=== PATIENT | male | born 1940 | race Caucasian/White ===

== ENCOUNTER 2020-08-22 11:34 | Outpatient (CLI) | payer MEDICARE | END 2020-08-22 11:35 | disposition home or self-care (01) | LOC: MRI 11:34 | PROVIDERS: ATTEND Family Medicine | DX: G89.4 Chronic pain syndrome (principal); M48.061 Spinal stenosis, lumbar region without neurogenic claudication; M47.816 Spondylosis without myelopathy or radiculopathy, lumbar region; N28.9 Disorder of kidney and ureter, unspecified | CPT/HCPCS: 72148 ==

== ENCOUNTER 2021-04-11 14:50 | Outpatient (CLI) | payer MEDICARE | END 2021-04-11 14:51 | disposition home or self-care (01) | LOC: BICCT 14:50 | PROVIDERS: ATTEND Internal Medicine Nephrology | DX: N28.1 Cyst of kidney, acquired (principal); K57.30 Diverticulosis of large intestine without perforation or abscess without bleeding; K57.10 Diverticulosis of small intestine without perforation or abscess without bleeding; R91.8 Other nonspecific abnormal finding of lung field; K82.8 Other specified diseases of gallbladder; N28.89 Other specified disorders of kidney and ureter | CPT/HCPCS: 74176 ==

== ENCOUNTER 2021-07-11 14:22 | Inpatient (IN) | payer MEDICARE ==
[2021-07-11 15:21] LABS: #Lymphocytes 1.5 thou/uL (1.20-3.40); #Monocytes 0.6 thou/uL (0.11-0.59); #Neutrophils 7.7 thou/uL (1.40-6.50); %Basophils 0.1 % (0.0-1.0); %Eosinophils 0.4 % (0.0-10.0); %Lymphocytes 15.3 % (21.0-51.0); %Monocytes 6.5 % (0.0-10.0); %Neutrophils 77.8 % (42.0-75.0); Hemoglobin 11.1 g/dL (14.0-18.0); Mean Corpuscular HGB CONC 32.5 g/dL (32.0-36.0); Mean Corpuscular Volume 98.3 fL (78.0-98.0); Mean Platelet Volume 7.9 fL (7.4-10.4); Platelet Count 303 thou/uL (130-400); RBC Distribution Width 13.8 % (11.5-14.5); Red Blood Cell (RBC) Count 3.48 mill/uL (4.70-6.10); White Blood Cell (WBC) Count 9.8 thou/uL (4.8-10.8)
[2021-07-11 15:43] LABS: ALT (SGPT) 11 U/L (8-55); AST (SGOT) 12 U/L (5-34); Albumin 4.1 g/dL (3.4-4.8); Alkaline Phosphatase 41 U/L (40-110); Anion Gap 16 mmol/L (10-20); BUN (Urea Nitrogen) 49 mg/dL (8.4-25.7); Bilirubin, Total 0.5 mg/dL (0.2-1.2); Calc. Creatinine Clearance 0 mL/min (70-130); Calcium 9.3 mg/dL (7.8-10.44); Carbon Dioxide 21 mmol/L (23-31); Chloride 105 mmol/L (98-107); Globulin 2.9 g/dL (2.4-3.5); Glucose 121 mg/dL (83-110); Sodium 138 mmol/L (136-145)
[2021-07-11 16:58] LABS: Lipase 9 U/L (8-78); Magnesium 2.3 mg/dL (1.6-2.6)
[2021-07-11] MEDS ORDERED: methylPREDNISolone Sod Succ/PF 125 MG/2 ML VIAL ONE (17:37)
[2021-07-11 18:41] LABS: Bacteria/HPF None Seen HPF (None Seen); Bilirubin Negative (Negative); Blood, Urine Negative (Negative); Clarity Clear (Clear); Glucose, Urine (Dipstick) Normal (Negative); Ketone, Urine Negative (Negative); Leukocyte Negative Leu/uL (Negative); Nitrite Negative (Negative); Protein, Urine (Dipstick) 100 mg/dL (Neg-Trace); RBC/HPF None Seen HPF (0-3); Specific Gravity, Urine 1.014 (1.002-1.036); Squamous Epithelial None Seen HPF (0-3); Urobilinogen Normal mg/dL (Less than 2); WBC/HPF 0-3 HPF (0-3); pH, Urine 5.5 (5.0-9.0)
[2021-07-11] MEDS ORDERED: Sodium Chloride 0.9% 1,000 ML IV SCH (20:15)
[2021-07-11 20:56] VITALS: BMI 20.7
[2021-07-11] MEDS ORDERED: Acetaminophen 325 MG TAB PO PRN (21:34)
[2021-07-11] MEDS ORDERED: Ondansetron PF 4 MG/2 ML Vial IVP PRN (21:34)
[2021-07-11] MEDS ORDERED: Furosemide 20 MG/2 ML VIAL SLOW IVP SCH (21:45)
[2021-07-12] MEDS: Furosemide 20 MG/2 ML VIAL SLOW IVP SCH ×2 (04:55→14:39)
[2021-07-12] MEDS: methylPREDNISolone Sod Succ/PF 125 MG/2 ML VIAL IVP SCH ×4 (04:55→17:24)
[2021-07-12 05:58] LABS: #Lymphocytes 0.4 thou/uL (1.20-3.40); #Monocytes 0.1 thou/uL (0.11-0.59); #Neutrophils 5.5 thou/uL (1.40-6.50); %Basophils 0.3 % (0.0-1.0); %Lymphocytes 6.6 % (21.0-51.0); %Monocytes 0.8 % (0.0-10.0); %Neutrophils 92.2 % (42.0-75.0); Hemoglobin 10.8 g/dL (14.0-18.0); Mean Corpuscular HGB CONC 33.2 g/dL (32.0-36.0); Mean Corpuscular Hemoglobin 32.9 pg (27.0-31.0); Mean Corpuscular Volume 98.9 fL (78.0-98.0); Mean Platelet Volume 7.9 fL (7.4-10.4); Platelet Count 266 thou/uL (130-400); RBC Distribution Width 13.6 % (11.5-14.5)
[2021-07-12 06:25] LABS: Anion Gap 14 mmol/L (10-20); BUN (Urea Nitrogen) 50 mg/dL (8.4-25.7); Calc. Creatinine Clearance 20 mL/min (70-130); Carbon Dioxide 23 mmol/L (23-31); Chloride 107 mmol/L (98-107); Glucose 141 mg/dL (83-110); Potassium 4.2 mmol/L (3.5-5.1); Sodium 140 mmol/L (136-145)
[2021-07-12] MEDS: Heparin 5,000 UNITS/ML VIAL SC SCH ×3 (08:09→20:25)
[2021-07-12 11:59] LABS: SARS-CoV-2 PCR by NAA Not Detected (NotDetected)
[2021-07-12] MEDS ORDERED: Non-Formulary Item 1 EACH (Albuterol Sulfate Hfa (Or) 200 PUFF Inh) INH PRN (12:07)
[2021-07-12] MEDS ORDERED: Non-Formulary Item 1 EACH (Ferrous Sulfate [Iron] 325 MG Tablet) PO SCH (12:15)
[2021-07-12] MEDS ORDERED: Albuterol 200 PUFF (6.7GM INHALER) INH PRN (12:16)
[2021-07-12] MEDS: hydrALAZINE 25 MG TAB PO SCH ×3 (14:39→20:34)
[2021-07-12] MEDS: Carvedilol 6.25 MG TAB PO SCH (17:24)
[2021-07-12] MEDS: Mometasone 200 MCG/Formoterol 5 MCG 120 PUFF INHALER INH SCH (18:49)
[2021-07-13] MEDS: methylPREDNISolone Sod Succ/PF 125 MG/2 ML VIAL IVP SCH ×4 (01:12→17:25)
[2021-07-13] MEDS: Furosemide 20 MG/2 ML VIAL SLOW IVP SCH ×2 (05:04→14:25)
[2021-07-13 06:43] LABS: Hemoglobin 10.8 g/dL (14.0-18.0); Mean Corpuscular HGB CONC 32.9 g/dL (32.0-36.0); Mean Corpuscular Hemoglobin 32.5 pg (27.0-31.0); Mean Corpuscular Volume 98.9 fL (78.0-98.0); Mean Platelet Volume 8.1 fL (7.4-10.4); Platelet Count 308 thou/uL (130-400); RBC Distribution Width 13.5 % (11.5-14.5); Red Blood Cell (RBC) Count 3.32 mill/uL (4.70-6.10); White Blood Cell (WBC) Count 15.8 thou/uL (4.8-10.8)
[2021-07-13 06:58] LABS: Anion Gap 17 mmol/L (10-20); BUN (Urea Nitrogen) 56 mg/dL (8.4-25.7); Calc. Creatinine Clearance 19 mL/min (70-130); Calcium 8.9 mg/dL (7.8-10.44); Carbon Dioxide 22 mmol/L (23-31); Chloride 105 mmol/L (98-107); Glucose 161 mg/dL (83-110); Potassium 3.5 mmol/L (3.5-5.1); Sodium 140 mmol/L (136-145)
[2021-07-13] MEDS: Mometasone 200 MCG/Formoterol 5 MCG 120 PUFF INHALER INH SCH ×2 (07:09→19:26)
[2021-07-13 07:22] LABS: Band 17 % (5-11); Lymphocytes 5 % (21-51); MDiff Complete? YES; Neutrophil 78 % (42-75); Platelet Morphology Comment Appears Adequate; Polychromasia SLIGHT = 2-3 cells (100X) (0-2/hpf)
[2021-07-13] MEDS ORDERED: Carvedilol 25 MG TAB PO SCH (08:30)
[2021-07-13] MEDS: Aspirin 81 mg Enteric Coated Tablet PO SCH (08:39)
[2021-07-13] MEDS: Heparin 5,000 UNITS/ML VIAL SC SCH ×3 (08:39→20:46)
[2021-07-13] MEDS: hydrALAZINE 25 MG TAB PO SCH ×3 (08:39→20:46)
[2021-07-13] MEDS: NIFEdipine XL 30 MG TAB PO SCH (08:39)
[2021-07-13] MEDS: Tamsulosin HCl 0.4 MG CAP PO SCH (08:39)
[2021-07-13] MEDS ORDERED: Ferrous Sulfate 325 MG TAB PO SCH (09:00)
[2021-07-13] MEDS: Carvedilol 6.25 MG TAB PO SCH (09:02)
[2021-07-13] MEDS: Carvedilol 25 MG TAB PO SCH (17:25)
[2021-07-14] MEDS: methylPREDNISolone Sod Succ/PF 125 MG/2 ML VIAL IVP SCH ×3 (00:48→11:49)
[2021-07-14] MEDS: Furosemide 20 MG/2 ML VIAL SLOW IVP SCH (06:03)
[2021-07-14 06:43] LABS: #Lymphocytes 0.6 thou/uL (1.20-3.40); #Monocytes 0.2 thou/uL (0.11-0.59); #Neutrophils 11.3 thou/uL (1.40-6.50); %Eosinophils 0.1 % (0.0-10.0); %Lymphocytes 4.7 % (21.0-51.0); %Monocytes 1.8 % (0.0-10.0); %Neutrophils 93.4 % (42.0-75.0); Mean Corpuscular Hemoglobin 32.5 pg (27.0-31.0); Mean Corpuscular Volume 98.2 fL (78.0-98.0); Mean Platelet Volume 8.2 fL (7.4-10.4); Platelet Count 335 thou/uL (130-400); RBC Distribution Width 13.5 % (11.5-14.5); Red Blood Cell (RBC) Count 3.39 mill/uL (4.70-6.10); White Blood Cell (WBC) Count 12.1 thou/uL (4.8-10.8)
[2021-07-14 06:54] LABS: Anion Gap 13 mmol/L (10-20); BUN (Urea Nitrogen) 58 mg/dL (8.4-25.7); Calc. Creatinine Clearance 21 mL/min (70-130); Calcium 8.8 mg/dL (7.8-10.44); Carbon Dioxide 26 mmol/L (23-31); Chloride 107 mmol/L (98-107); Glucose 164 mg/dL (83-110); Potassium 3.4 mmol/L (3.5-5.1); Sodium 143 mmol/L (136-145)
[2021-07-14] MEDS: Mometasone 200 MCG/Formoterol 5 MCG 120 PUFF INHALER INH SCH (07:19)
[2021-07-14 08:24] VITALS: BP 156/74; TEMP 98.1
[2021-07-14] MEDS: Carvedilol 25 MG TAB PO SCH (08:47)
[2021-07-14] MEDS: Tamsulosin HCl 0.4 MG CAP PO SCH (08:47)
[2021-07-14] MEDS: Aspirin 81 mg Enteric Coated Tablet PO SCH (08:47)
[2021-07-14] MEDS: NIFEdipine XL 30 MG TAB PO SCH (08:47)
[2021-07-14] MEDS: hydrALAZINE 25 MG TAB PO SCH (08:47)
[2021-07-14] MEDS: Heparin 5,000 UNITS/ML VIAL SC SCH (08:48)
[2021-07-14] MEDS ORDERED: Potassium Chloride 20 MEQ TAB PO SCH (09:00)
== END 2021-07-14 12:42 | disposition home or self-care (01) | DRG 291 ==
LOC: ERS 14:22 → T4-A 17:05
PROVIDERS: ADMIT Internal Medicine; ATTEND Internal Medicine
DX: I13.0 Hypertensive heart and chronic kidney disease with heart failure and stage 1 through stage 4 chronic kidney disease, or unspecified chronic kidney disease (principal); J18.9 Pneumonia, unspecified organism; I50.33 Acute on chronic diastolic (congestive) heart failure; J96.01 Acute respiratory failure with hypoxia; J44.1 Chronic obstructive pulmonary disease with (acute) exacerbation; N17.9 Acute kidney failure, unspecified; J44.0 Chronic obstructive pulmonary disease with (acute) lower respiratory infection; Z20.822 Contact with and (suspected) exposure to COVID-19; N40.0 Benign prostatic hyperplasia without lower urinary tract symptoms; D63.1 Anemia in chronic kidney disease; N18.30 Chronic kidney disease, stage 3 unspecified; R78.5 Finding of other psychotropic drug in blood; Z60.2 Problems related to living alone; D72.829 Elevated white blood cell count, unspecified; T38.0X5A Adverse effect of glucocorticoids and synthetic analogues, initial encounter; Z88.0 Allergy status to penicillin; Z98.890 Other specified postprocedural states; Z87.891 Personal history of nicotine dependence; Z79.899 Other long term (current) drug therapy; Z79.82 Long term (current) use of aspirin; Z79.51 Long term (current) use of inhaled steroids; Z80.9 Family history of malignant neoplasm, unspecified; Z28.310 Unvaccinated for COVID-19
CPT/HCPCS: 36415; 36416; 71045; 80048; 80053; 81003; 81015; 83605; 83690; 83735; 83880; 84145; 84484; 85025; 87040; 87086; 93005; 93306; 94640; 94664; 96374; 96375; J1644; J1940; J1956; J2930; J7620; U0003; U0005

== ENCOUNTER 2021-07-16 00:12 | Inpatient (IN) | payer MEDICARE ==
[2021-07-16 00:47] LABS: Mean Corpuscular HGB CONC 33.3 g/dL (32.0-36.0); Mean Corpuscular Hemoglobin 32.4 pg (27.0-31.0); Mean Corpuscular Volume 97.4 fL (78.0-98.0); Mean Platelet Volume 7.8 fL (7.4-10.4); Platelet Count 389 thou/uL (130-400); RBC Distribution Width 13.8 % (11.5-14.5); White Blood Cell (WBC) Count 12.6 thou/uL (4.8-10.8)
[2021-07-16 01:03] LABS: Band 2 % (5-11); Lymphocytes 9 % (21-51); MDiff Complete? YES; Metamyelocyte 1 % (0-0); Monocytes 10 % (0-10); Myelocyte 1 % (0-0); Neutrophil 77 % (42-75)
[2021-07-16 01:09] LABS: ALT (SGPT) 18 U/L (8-55); AST (SGOT) 17 U/L (5-34); Albumin 4.5 g/dL (3.4-4.8); Alkaline Phosphatase 48 U/L (40-110); Anion Gap 17 mmol/L (10-20); BUN (Urea Nitrogen) 67 mg/dL (8.4-25.7); Bilirubin, Total 0.4 mg/dL (0.2-1.2); Calc. Creatinine Clearance 0 mL/min (70-130); Calcium 9.8 mg/dL (7.8-10.44); Carbon Dioxide 25 mmol/L (23-31); Chloride 102 mmol/L (98-107); Globulin 2.5 g/dL (2.4-3.5); Glucose 141 mg/dL (83-110); Potassium 4.7 mmol/L (3.5-5.1); Sodium 139 mmol/L (136-145)
[2021-07-16] MEDS ORDERED: Acetaminophen 325 MG TAB PO PRN (04:14)
[2021-07-16 04:18] LABS: Troponin I 0.013 ng/mL (< 0.028)
[2021-07-16 06:57] LABS: SARS-CoV-2 NAA Rapid Test Not Detected (NotDetected)
[2021-07-16 08:14] VITALS: BMI 22.1
[2021-07-16] MEDS: Tamsulosin HCl 0.4 MG CAP PO SCH (09:53)
[2021-07-16] MEDS: methylPREDNISolone Sod Succ 40 MG VIAL IVP SCH ×3 (09:53→18:22)
[2021-07-16] MEDS: Aspirin 81 mg Enteric Coated Tablet PO SCH (09:53)
[2021-07-16] MEDS: NIFEdipine XL 30 MG TAB PO SCH (09:53)
[2021-07-16] MEDS: Heparin 5,000 UNITS/ML VIAL SC SCH ×3 (09:53→21:20)
[2021-07-16] MEDS: Furosemide 40 MG/4 ML VIAL SLOW IVP SCH ×2 (09:53→15:18)
[2021-07-16] MEDS: hydrALAZINE 25 MG TAB PO SCH ×3 (09:54→21:20)
[2021-07-17] MEDS: methylPREDNISolone Sod Succ 40 MG VIAL IVP SCH ×4 (00:16→17:41)
[2021-07-17 04:18] LABS: Anion Gap 14 mmol/L (10-20); BUN (Urea Nitrogen) 64 mg/dL (8.4-25.7); Calc. Creatinine Clearance 20 mL/min (70-130); Calcium 8.8 mg/dL (7.8-10.44); Carbon Dioxide 26 mmol/L (23-31); Chloride 104 mmol/L (98-107); Glucose 159 mg/dL (83-110); Potassium 4.2 mmol/L (3.5-5.1); Sodium 140 mmol/L (136-145)
[2021-07-17 04:59] LABS: Band 9 % (5-11); Hemoglobin 11.3 g/dL (14.0-18.0); Lymphocytes 7 % (21-51); MDiff Complete? YES; Mean Corpuscular HGB CONC 32.6 g/dL (32.0-36.0); Mean Corpuscular Hemoglobin 32.6 pg (27.0-31.0); Mean Platelet Volume 8.2 fL (7.4-10.4); Neutrophil 84 % (42-75); Platelet Count 324 thou/uL (130-400); RBC Distribution Width 13.9 % (11.5-14.5); Red Blood Cell (RBC) Count 3.49 mill/uL (4.70-6.10); White Blood Cell (WBC) Count 10.4 thou/uL (4.8-10.8)
[2021-07-17] MEDS: Furosemide 40 MG/4 ML VIAL SLOW IVP SCH (06:12)
[2021-07-17] MEDS ORDERED: Mometasone 200 MCG/Formoterol 5 MCG 120 PUFF INHALER INH SCH (06:30)
[2021-07-17] MEDS: NIFEdipine XL 30 MG TAB PO SCH (08:37)
[2021-07-17] MEDS: hydrALAZINE 25 MG TAB PO SCH ×2 (08:37→13:59)
[2021-07-17] MEDS: Tamsulosin HCl 0.4 MG CAP PO SCH (08:37)
[2021-07-17] MEDS: Heparin 5,000 UNITS/ML VIAL SC SCH ×2 (08:37→14:00)
[2021-07-17] MEDS: Aspirin 81 mg Enteric Coated Tablet PO SCH (08:37)
[2021-07-17 11:38] VITALS: TEMP 97.7
[2021-07-17] MEDS ORDERED: NIFEdipine XL 60 MG TAB PO SCH (12:00)
[2021-07-17] MEDS ORDERED: Carvedilol 25 MG TAB PO SCH ×2 (12:00→17:00)
[2021-07-17 12:17] VITALS: BP 131/63
[2021-07-18] MEDS ORDERED: NIFEdipine XL 90 MG TAB PO SCH (09:00)
== END 2021-07-17 18:05 | disposition home or self-care (01) | DRG 189 ==
LOC: ERS 00:12 → ERHOLD 02:23 → IMCU/EMU 08:05
PROVIDERS: ADMIT Internal Medicine; ATTEND Internal Medicine
DX: J96.01 Acute respiratory failure with hypoxia (principal); Z66 Do not resuscitate; Z51.5 Encounter for palliative care; Z20.822 Contact with and (suspected) exposure to COVID-19; I50.33 Acute on chronic diastolic (congestive) heart failure; I13.0 Hypertensive heart and chronic kidney disease with heart failure and stage 1 through stage 4 chronic kidney disease, or unspecified chronic kidney disease; J44.1 Chronic obstructive pulmonary disease with (acute) exacerbation; K21.9 Gastro-esophageal reflux disease without esophagitis; N18.30 Chronic kidney disease, stage 3 unspecified; N40.0 Benign prostatic hyperplasia without lower urinary tract symptoms; E78.5 Hyperlipidemia, unspecified; Z88.0 Allergy status to penicillin; Z87.891 Personal history of nicotine dependence; Z99.81 Dependence on supplemental oxygen; Z79.899 Other long term (current) drug therapy; Z79.82 Long term (current) use of aspirin; Z79.52 Long term (current) use of systemic steroids; Z98.890 Other specified postprocedural states; Z82.49 Family history of ischemic heart disease and other diseases of the circulatory system
CPT/HCPCS: 36415; 71045; 80048; 80053; 83880; 84484; 85025; 93005; 93798; 94640; J1644; J1940; J2920; J7620; U0002

== ENCOUNTER 2021-09-10 12:06 | Outpatient (CLI) | payer MEDICARE | END 2021-09-10 12:07 | disposition home or self-care (01) | LOC: BICMRI 12:06 | PROVIDERS: ATTEND Physician Assistant | DX: M47.12 Other spondylosis with myelopathy, cervical region (principal); M54.6 Pain in thoracic spine; G96.191 Perineural cyst; M50.01 Cervical disc disorder with myelopathy, high cervical region; M50.03 Cervical disc disorder with myelopathy, cervicothoracic region; Z98.890 Other specified postprocedural states; N18.4 Chronic kidney disease, stage 4 (severe) | CPT/HCPCS: 36415; 72050; 72141; 72146; 80048 ==

== ENCOUNTER 2024-01-07 12:36 | Inpatient (IN) | payer OTHER ==
[2024-01-07 13:09] VITALS: BMI 21.5
[2024-01-07] MEDS: hydrALAZINE 20 MG/ML VIAL SLOW IVP PRN (13:25)
[2024-01-07] MEDS ORDERED: Acetaminophen 325 MG TAB PO PRN (13:48)
[2024-01-07] MEDS ORDERED: Ipratropium/Albuterol 3 ML NEB NEB PRN (14:14)
[2024-01-07] MEDS: hydrALAZINE 25 MG TAB PO SCH (14:27)
[2024-01-07] MEDS: NIFEdipine XL 90 MG ER.TAB PO SCH (14:27)
[2024-01-07] MEDS: Furosemide 40 MG (4 mL) VIAL SLOW IVP SCH (14:27)
[2024-01-07] MEDS: Carvedilol 25 MG TAB PO SCH (17:53)
[2024-01-07] MEDS: Famotidine 20 MG TAB PO SCH (20:56)
[2024-01-07] MEDS: Heparin 5,000 UNITS/ML VIAL SC SCH (20:56)
[2024-01-07] MEDS: Mometasone 200 MCG/Formoterol 5 MCG 120 PUFF INHALER INH SCH (22:01)
[2024-01-08 05:33] LABS: #Basophils Less than 0.03 10x3/uL (0.0-0.2); #Eosinophils Less than 0.03 10x3/uL (0.0-0.7); %Basophils 0.1 % (0.0-1.0); %Eosinophils 0.1 % (0.0-10.0); %Lymphocytes 6.9 % (21.0-51.0); %Monocytes 6.3 % (0.0-10.0); %Neutrophils 85.7 % (42.0-75.0); Hematocrit 26.2 % (42.0-52.0); Hemoglobin 8.4 g/dL (14.0-18.0); Mean Corpuscular HGB CONC 32.1 g/dL (32.0-36.0); Mean Corpuscular Hemoglobin 30.5 pg (27.0-31.0); Mean Corpuscular Volume 95.3 fL (78.0-98.0); Mean Platelet Volume 11.6 fL (7.4-10.4); Platelet Count 266 10x3/uL (130-400); RBC Distribution Width 18.2 % (11.5-14.5); Red Blood Cell (RBC) Count 2.75 mill/uL (4.70-6.10)
[2024-01-08 05:57] LABS: Anion Gap 15 mmol/L (10-20); BUN (Urea Nitrogen) 93 mg/dL (8.4-25.7); Calc. Creatinine Clearance 12 mL/min (70-130); Calcium 8.2 mg/dL (7.8-10.44); Carbon Dioxide 19 mmol/L (23-31); Chloride 110 mmol/L (98-107); Estimated GFR 14; Glucose 119 mg/dL (83-110); Potassium 5.2 mmol/L (3.5-5.1); Sodium 139 mmol/L (136-145)
[2024-01-08] MEDS: NIFEdipine XL 90 MG ER.TAB PO SCH (09:14)
[2024-01-08] MEDS: Aspirin 81 mg Enteric Coated Tablet PO SCH (09:14)
[2024-01-08] MEDS: Ferrous Sulfate 325 MG TAB PO SCH (09:15)
[2024-01-08] MEDS: predniSONE 20 MG TAB PO SCH (09:15)
[2024-01-08] MEDS: LOKELMA 10 GM PACKET PO SCH (09:15)
[2024-01-08] MEDS: Ipratropium/Albuterol 3 ML NEB NEB SCH (10:54)
[2024-01-08 11:40] LABS: Anion Gap 17 mmol/L (10-20); BUN (Urea Nitrogen) 93 mg/dL (8.4-25.7); Calc. Creatinine Clearance 12 mL/min (70-130); Calcium 8.1 mg/dL (7.8-10.44); Carbon Dioxide 20 mmol/L (23-31); Chloride 108 mmol/L (98-107); Estimated GFR 14; Glucose 169 mg/dL (83-110); Sodium 140 mmol/L (136-145)
[2024-01-08] MEDS: guaiFENesin ER 600 MG TAB PO SCH ×2 (11:47→20:40)
[2024-01-08] MEDS: Carvedilol 6.25 MG TAB PO SCH (17:04)
[2024-01-08] MEDS: Mometasone 200 MCG/Formoterol 5 MCG 120 PUFF INHALER INH SCH (18:21)
[2024-01-08] MEDS: Famotidine 20 MG TAB PO SCH (20:40)
[2024-01-09 04:26] LABS: #Basophils Less than 0.03 10x3/uL (0.0-0.2); #Eosinophils Less than 0.03 10x3/uL (0.0-0.7); %Lymphocytes 3.4 % (21.0-51.0); %Monocytes 3.5 % (0.0-10.0); %Neutrophils 92.3 % (42.0-75.0); Hematocrit 24.5 % (42.0-52.0); Hemoglobin 7.8 g/dL (14.0-18.0); Mean Corpuscular HGB CONC 31.8 g/dL (32.0-36.0); Mean Corpuscular Hemoglobin 30.1 pg (27.0-31.0); Mean Corpuscular Volume 94.6 fL (78.0-98.0); Mean Platelet Volume 11.6 fL (7.4-10.4); Platelet Count 251 10x3/uL (130-400); RBC Distribution Width 18.4 % (11.5-14.5); Red Blood Cell (RBC) Count 2.59 mill/uL (4.70-6.10)
[2024-01-09 05:02] LABS: Anion Gap 16 mmol/L (10-20); BUN (Urea Nitrogen) 99 mg/dL (8.4-25.7); Calc. Creatinine Clearance 10 mL/min (70-130); Calcium 8.2 mg/dL (7.8-10.44); Carbon Dioxide 20 mmol/L (23-31); Chloride 108 mmol/L (98-107); Estimated GFR 11; Glucose 159 mg/dL (83-110); Magnesium 2.3 mg/dL (1.6-2.6); Potassium 5.3 mmol/L (3.5-5.1); Sodium 139 mmol/L (136-145)
[2024-01-09] MEDS: Albumin 25% 25 GM (100 mL) BOT IVPB SCH (09:12)
[2024-01-09] MEDS: Pantoprazole DR 40 MG TAB PO SCH (10:29)
[2024-01-09] MEDS: LOKELMA 10 GM PACKET PO SCH (11:23)
[2024-01-09 12:23] LABS: Anion Gap 18 mmol/L (10-20); BUN (Urea Nitrogen) 102 mg/dL (8.4-25.7); Calc. Creatinine Clearance 10 mL/min (70-130); Calcium 8.1 mg/dL (7.8-10.44); Carbon Dioxide 19 mmol/L (23-31); Chloride 106 mmol/L (98-107); Estimated GFR 12; Glucose 128 mg/dL (83-110); Potassium 4.7 mmol/L (3.5-5.1); Sodium 138 mmol/L (136-145)
[2024-01-10 03:50] LABS: #Basophils Less than 0.03 10x3/uL (0.0-0.2); #Eosinophils Less than 0.03 10x3/uL (0.0-0.7); %Basophils 0.1 % (0.0-1.0); %Lymphocytes 2.9 % (21.0-51.0); %Monocytes 6.7 % (0.0-10.0); %Neutrophils 89.5 % (42.0-75.0); Hematocrit 21.4 % (42.0-52.0); Mean Corpuscular HGB CONC 32.7 g/dL (32.0-36.0); Mean Corpuscular Hemoglobin 30.3 pg (27.0-31.0); Mean Corpuscular Volume 92.6 fL (78.0-98.0); Mean Platelet Volume 11.1 fL (7.4-10.4); Platelet Count 199 10x3/uL (130-400); RBC Distribution Width 18.7 % (11.5-14.5); Red Blood Cell (RBC) Count 2.31 mill/uL (4.70-6.10)
[2024-01-10 04:10] LABS: Anion Gap 17 mmol/L (10-20); BUN (Urea Nitrogen) 100 mg/dL (8.4-25.7); Calc. Creatinine Clearance 11 mL/min (70-130); Calcium 8.3 mg/dL (7.8-10.44); Carbon Dioxide 20 mmol/L (23-31); Chloride 109 mmol/L (98-107); Estimated GFR 13; Glucose 128 mg/dL (83-110); Iron 61 ug/dL (65-175); Iron Binding Capacity, Total 146 mcg/dL (261-462); Potassium 4.2 mmol/L (3.5-5.1); Sodium 142 mmol/L (136-145)
[2024-01-10 04:37] LABS: Ferritin 163.61 ng/mL (22-322)
[2024-01-10] MEDS: Furosemide 40 MG (4 mL) VIAL SLOW IVP SCH ×2 (08:22→13:41)
[2024-01-10] MEDS: Pantoprazole DR 40 MG TAB PO SCH (08:23)
[2024-01-10] MEDS: Sodium Ferric Gluconate 250 MG in Sodium Chloride 0.9% 250 ML 250 ML IVPB SCH (09:20)
[2024-01-10 11:05] LABS: INR-International Normal Ratio 1.2; Prothrombin Time 15.1 sec (12.0-14.7)
[2024-01-10 19:16] LABS: Hematocrit 29.4 % (42.0-52.0); Hemoglobin 9.5 g/dL (14.0-18.0)
[2024-01-11 04:28] LABS: #Basophils Less than 0.03 10x3/uL (0.0-0.2); #Eosinophils Less than 0.03 10x3/uL (0.0-0.7); %Basophils 0.1 % (0.0-1.0); %Lymphocytes 2.8 % (21.0-51.0); %Monocytes 3.3 % (0.0-10.0); Hemoglobin 9.3 g/dL (14.0-18.0); Mean Corpuscular HGB CONC 33.2 g/dL (32.0-36.0); Mean Corpuscular Hemoglobin 30.1 pg (27.0-31.0); Mean Corpuscular Volume 90.6 fL (78.0-98.0); Mean Platelet Volume 11.6 fL (7.4-10.4); Platelet Count 182 10x3/uL (130-400); RBC Distribution Width 18.8 % (11.5-14.5); Red Blood Cell (RBC) Count 3.09 mill/uL (4.70-6.10)
[2024-01-11 04:50] LABS: Anion Gap 16 mmol/L (10-20); BUN (Urea Nitrogen) 103 mg/dL (8.4-25.7); Calc. Creatinine Clearance 10 mL/min (70-130); Calcium 8.3 mg/dL (7.8-10.44); Carbon Dioxide 20 mmol/L (23-31); Chloride 108 mmol/L (98-107); Estimated GFR 12; Glucose 100 mg/dL (83-110); Potassium 4.3 mmol/L (3.5-5.1); Sodium 140 mmol/L (136-145)
[2024-01-11] MEDS: hydrALAZINE 20 MG/ML VIAL SLOW IVP SCH (10:30)
[2024-01-12 05:23] LABS: #Basophils Less than 0.03 10x3/uL (0.0-0.2); #Eosinophils Less than 0.03 10x3/uL (0.0-0.7); %Basophils 0.1 % (0.0-1.0); %Eosinophils 0.1 % (0.0-10.0); %Lymphocytes 3.8 % (21.0-51.0); %Neutrophils 88.9 % (42.0-75.0); Hematocrit 29.7 % (42.0-52.0); Hemoglobin 9.9 g/dL (14.0-18.0); Mean Corpuscular HGB CONC 33.3 g/dL (32.0-36.0); Mean Corpuscular Hemoglobin 30.2 pg (27.0-31.0); Mean Corpuscular Volume 90.5 fL (78.0-98.0); Mean Platelet Volume 11.4 fL (7.4-10.4); Platelet Count 188 10x3/uL (130-400); RBC Distribution Width 18.7 % (11.5-14.5); Red Blood Cell (RBC) Count 3.28 mill/uL (4.70-6.10)
[2024-01-12 05:47] LABS: Anion Gap 16 mmol/L (10-20); BUN (Urea Nitrogen) 112 mg/dL (8.4-25.7); Calc. Creatinine Clearance 10 mL/min (70-130); Calcium 8.2 mg/dL (7.8-10.44); Carbon Dioxide 20 mmol/L (23-31); Chloride 109 mmol/L (98-107); Estimated GFR 11; Glucose 118 mg/dL (83-110); Potassium 4.2 mmol/L (3.5-5.1); Sodium 141 mmol/L (136-145)
[2024-01-12] MEDS: hydrALAZINE 25 MG TAB PO SCH ×2 (08:29→15:33)
[2024-01-12] MEDS: Doxycycline 100 MG CAP PO SCH (08:29)
[2024-01-12] MEDS: Ferrous Sulfate 325 MG TAB PO SCH (12:00)
[2024-01-12] MEDS ORDERED: hydrALAZINE 25 MG TAB PO SCH (12:11)
[2024-01-12] MEDS: Labetalol HCl 100 MG/20 ML VIAL SLOW IVP SCH (12:28)
[2024-01-12] MEDS: Ipratropium/Albuterol 3 ML NEB NEB SCH (14:09)
[2024-01-12] MEDS: Albumin 25% 25 GM (100 mL) BOT IVPB SCH (17:39)
[2024-01-12] MEDS: Carvedilol 6.25 MG TAB PO SCH (17:43)
[2024-01-12] MEDS: NIFEdipine XL 60 MG ER.TAB PO SCH (21:04)
[2024-01-13 03:46] LABS: #Basophils Less than 0.03 10x3/uL (0.0-0.2); #Eosinophils Less than 0.03 10x3/uL (0.0-0.7); %Monocytes 5.2 % (0.0-10.0); %Neutrophils 89.4 % (42.0-75.0); Hematocrit 26.4 % (42.0-52.0); Hemoglobin 8.9 g/dL (14.0-18.0); Mean Corpuscular HGB CONC 33.7 g/dL (32.0-36.0); Mean Corpuscular Hemoglobin 30.5 pg (27.0-31.0); Mean Corpuscular Volume 90.4 fL (78.0-98.0); Mean Platelet Volume 11.5 fL (7.4-10.4); Platelet Count 173 10x3/uL (130-400); RBC Distribution Width 18.6 % (11.5-14.5); Red Blood Cell (RBC) Count 2.92 mill/uL (4.70-6.10)
[2024-01-13 04:17] LABS: Anion Gap 18 mmol/L (10-20); BUN (Urea Nitrogen) 120 mg/dL (8.4-25.7); Calc. Creatinine Clearance 9 mL/min (70-130); Calcium 8.5 mg/dL (7.8-10.44); Carbon Dioxide 20 mmol/L (23-31); Chloride 106 mmol/L (98-107); Estimated GFR 11; Glucose 126 mg/dL (83-110); Potassium 4.1 mmol/L (3.5-5.1); Sodium 140 mmol/L (136-145)
[2024-01-13] MEDS ORDERED: Mometasone 200 MCG/Formoterol 5 MCG 120 PUFF INHALER INH PRN (08:04)
[2024-01-13] MEDS: Ipratropium/Albuterol 3 ML NEB NEB PRN (10:40)
[2024-01-13] MEDS ORDERED: Furosemide 20 MG TAB PO SCH (14:00)
[2024-01-13] MEDS: Furosemide 40 MG TAB PO SCH (14:31)
[2024-01-14] MEDS: Furosemide 20 MG (2 mL) VIAL SLOW IVP SCH (04:28)
[2024-01-14] MEDS: predniSONE 20 MG TAB PO SCH (08:36)
[2024-01-14 10:21] LABS: BUN (Urea Nitrogen) 125 mg/dL (8.4-25.7)
[2024-01-14 11:13] LABS: Chloride 105 mmol/L (98-107); Potassium 4.1 mmol/L (3.5-5.1); Sodium 141 mmol/L (136-145)
[2024-01-14 11:14] LABS: Calcium 8.9 mg/dL (7.8-10.44); Glucose 130 mg/dL (83-110)
[2024-01-14 11:16] LABS: Anion Gap 22 mmol/L (10-20); Carbon Dioxide 18 mmol/L (23-31)
[2024-01-14 11:18] LABS: Calc. Creatinine Clearance 9 mL/min (70-130); Estimated GFR 11
[2024-01-14 21:38] VITALS: BMI 20.3
[2024-01-15 04:15] LABS: Anion Gap 22 mmol/L (10-20); Calc. Creatinine Clearance 9 mL/min (70-130); Calcium 8.9 mg/dL (7.8-10.44); Carbon Dioxide 18 mmol/L (23-31); Chloride 103 mmol/L (98-107); Estimated GFR 11; Glucose 129 mg/dL (83-110); Potassium 4.5 mmol/L (3.5-5.1); Sodium 138 mmol/L (136-145)
[2024-01-15 04:31] LABS: BUN (Urea Nitrogen) 141 mg/dL (8.4-25.7)
[2024-01-15 09:22] VITALS: BP 175/84
[2024-01-15 10:48] VITALS: TEMP 97.8
== END 2024-01-15 14:38 | disposition swing bed (61) | DRG 291 ==
LOC: 2SE 12:36
PROVIDERS: ADMIT Internal Medicine; ATTEND Family Medicine
PROC: 30233N1 Transfusion of Nonautologous Red Blood Cells into Peripheral Vein, Percutaneous Approach (ICD-10-PCS; principal; 2024-01-10)
DX: I13.2 Hypertensive heart and chronic kidney disease with heart failure and with stage 5 chronic kidney disease, or end stage renal disease (principal); I50.33 Acute on chronic diastolic (congestive) heart failure; J96.01 Acute respiratory failure with hypoxia; R65.11 Systemic inflammatory response syndrome (SIRS) of non-infectious origin with acute organ dysfunction; N18.5 Chronic kidney disease, stage 5; I16.1 Hypertensive emergency; J44.1 Chronic obstructive pulmonary disease with (acute) exacerbation; E87.20 Acidosis, unspecified; N17.9 Acute kidney failure, unspecified; E87.5 Hyperkalemia; D72.829 Elevated white blood cell count, unspecified; F03.A0 Unspecified dementia, mild, without behavioral disturbance, psychotic disturbance, mood disturbance, and anxiety; Z66 Do not resuscitate; D63.8 Anemia in other chronic diseases classified elsewhere; Z88.0 Allergy status to penicillin; Z87.891 Personal history of nicotine dependence; Z79.899 Other long term (current) drug therapy
CPT/HCPCS: 36415; 36430; 71045; 71250; 80048; 82274; 82607; 82728; 83540; 83550; 83735; 83880; 84145; 85025; 85046; 85610; 86141; 86850; 86900; 86901; 93306; 94640; J0360; J1644; J1940; J2916; J7050; J7512; J7620; P9016; P9047

== ENCOUNTER 2024-02-21 18:27 | Emergency (ER) | payer MEDICARE, OTHER ==
[2024-02-21 19:13] LABS: #Basophils Less than 0.03 10x3/uL (0.0-0.2); #Eosinophils Less than 0.03 10x3/uL (0.0-0.7); %Basophils 0.1 % (0.0-1.0); %Lymphocytes 9.8 % (21.0-51.0); %Monocytes 14.1 % (0.0-10.0); %Neutrophils 75.3 % (42.0-75.0); Hematocrit 24.3 % (42.0-52.0); Hemoglobin 7.6 g/dL (14.0-18.0); Mean Corpuscular HGB CONC 31.3 g/dL (32.0-36.0); Mean Corpuscular Hemoglobin 30.9 pg (27.0-31.0); Mean Corpuscular Volume 98.8 fL (78.0-98.0); Mean Platelet Volume 10.8 fL (7.4-10.4); Platelet Count 300 10x3/uL (130-400); RBC Distribution Width 19.4 % (11.5-14.5); Red Blood Cell (RBC) Count 2.46 mill/uL (4.70-6.10)
[2024-02-21 19:26] LABS: ALT (SGPT) 18 U/L (8-55); AST (SGOT) 19 U/L (5-34); Albumin 3.3 g/dL (3.4-4.8); Alkaline Phosphatase 46 U/L (40-110); Anion Gap 21 mmol/L (10-20); BUN (Urea Nitrogen) 96 mg/dL (8.4-25.7); Bilirubin, Total 0.3 mg/dL (0.2-1.2); Calc. Creatinine Clearance 0 mL/min (70-130); Calcium 8.7 mg/dL (7.8-10.44); Carbon Dioxide 18 mmol/L (23-31); Chloride 106 mmol/L (98-107); Estimated GFR 11; Globulin 3.1 g/dL (2.4-3.5); Glucose 122 mg/dL (83-110); Potassium 5.2 mmol/L (3.5-5.1); Protein, Total 6.4 g/dL (5.8-8.1); Sodium 140 mmol/L (136-145)
== END 2024-02-21 23:05 | disposition home or self-care (01) ==
LOC: ERS 18:27
DX: J11.1 Influenza due to unidentified influenza virus with other respiratory manifestations (principal); I13.0 Hypertensive heart and chronic kidney disease with heart failure and stage 1 through stage 4 chronic kidney disease, or unspecified chronic kidney disease; I50.9 Heart failure, unspecified; N18.4 Chronic kidney disease, stage 4 (severe); R79.89 Other specified abnormal findings of blood chemistry; J44.9 Chronic obstructive pulmonary disease, unspecified; Z87.891 Personal history of nicotine dependence
CPT/HCPCS: 36415; 71045; 80053; 83605; 83880; 84484; 85025; 86850; 86900; 86901; 87040; 87428; 93005